=== PATIENT | female | born 1980 ===

== ENCOUNTER 2022-08-09 18:00 | Outpatient (CLI) | payer BC | END 2022-08-09 18:01 | disposition home or self-care (01) | LOC: SLEEPLAB 18:00 | PROVIDERS: ATTEND Student in an Organized Health Care Education/Training Program | DX: G47.33 Obstructive sleep apnea (adult) (pediatric) (principal); G47.9 Sleep disorder, unspecified; F41.8 Other specified anxiety disorders; E11.9 Type 2 diabetes mellitus without complications; R06.83 Snoring | CPT/HCPCS: 95800 ==